=== PATIENT | female | born 1990 | race Caucasian/White ===

== ENCOUNTER 2017-10-16 08:04 | Emergency (ER) | payer MEDICAID ==
[2017-10-16 08:04] VITALS: BMI 23.8
[2017-10-16 08:14] VITALS: RESP 18
[2017-10-16] MEDS ORDERED: Iohexol 240 (50 ml) PO STA (08:51)
[2017-10-16] MEDS ORDERED: Sodium Chloride 0.9% 1,000 ML IV STA (08:51)
[2017-10-16] MEDS ORDERED: Iohexol 240 (50 ml) ONE (08:58)
[2017-10-16] MEDS ORDERED: Sodium Chloride 0.9% 1,000 ML ONE (08:59)
[2017-10-16 09:11] LABS: BASO % 0.4 % (0.0-2.0); EOS # 0.1 K/uL (0.0-0.7); LYMPH # 1.9 K/uL (1.0-4.3); LYMPH % 28.5 % (20.0-40.0); MEAN CORPUSCULAR HEMOGLOBIN 28.1 pg (27.0-31.0); MEAN CORPUSCULAR HGB CONC 33.8 g/dL (33.0-37.0); MEAN PLATELET VOLUME 8.1 fL (7.2-11.7); MONO # 0.4 K/uL (0.0-0.8); MONO % 5.6 % (0.0-10.0); NEUT # 4.2 K/uL (1.8-7.0); NEUT % 64.5 % (50.0-75.0); RBC 4.26 Mil/uL (3.80-5.20); RED CELL DISTRIBUTION WIDTH 14.5 % (11.5-14.5); WHITE BLOOD COUNT 6.5 K/uL (4.8-10.8)
[2017-10-16 09:23] LABS: ALB/GLOB RATIO 1.4 (1.0-2.1); ALT/SGPT 23 U/L (9-52); AST/SGOT 19 U/L (14-36); BLOOD UREA NITROGEN 13 mg/dL (7-17); CALCIUM 8.8 mg/dl (8.6-10.4); GFR AFRICAN-AMERICAN > 60; GFR NON-AFRICAN AMERICAN > 60; LIPASE 201 U/L (23-300); SQUAMOUS EPITHIAL 10 /hpf (0-5); URINE BACTERIA RARE (<OCC); URINE BILIRUBIN NEGATIVE (NEGATIVE); URINE BLOOD 1+ (NEGATIVE); URINE CLARITY Hazy (Clear); URINE COLOR Yellow (YELLOW); URINE GLUCOSE (UA) NORMAL (Normal); URINE LEUKOCYTE ESTERASE 1+ Leu/uL (Negative); URINE PROTEIN NEGATIVE (NEGATIVE); URINE UROBILINOGEN NORMAL mg/dL (0.2-1.0)
[2017-10-16 10:11] LABS: PROTHROMBIN TIME 11.2 SECONDS (9.7-12.2)
[2017-10-16] MEDS ORDERED: Morphine 4 MG/ML VIAL ONE (10:54)
[2017-10-16] MEDS ORDERED: Iodixanol 320 MG/ML 100 ML BOTTLE IV ONE (11:05)
--- NOTE | 2017-10-16 12:44 | CT ---
Date of service: 10/16/2017 PROCEDURE: CT Abdomen and Pelvis with contrast HISTORY: Left abdominal pain, vomiting COMPARISON: 12/15/2014. TECHNIQUE: CT scan of the abdomen and pelvis was performed after administration of intravenous contrast. Oral contrast was administered. Coronal and sagittal reformatted images were obtained. Contrast dose: Radiation dose: Total exam DLP = 627.73 mGy-cm. This CT exam was performed using one or more of the following dose reduction techniques: Automated exposure control, adjustment of the mA and/or kV according to patient size, and/or use of iterative reconstruction technique. FINDINGS: LOWER THORAX: The visualized lungs are clear. LIVER: Normal in size with homogeneous enhancement. No gross lesion or ductal dilatation. GALLBLADDER AND BILE DUCTS: No calcified gallstones. PANCREAS: Normal in size with homogeneous enhancement. No gross lesion or ductal dilatation. SPLEEN: Normal in size and appearance. ADRENALS: No discrete nodule. KIDNEYS AND URETERS: Normal in size with homogeneous enhancement. No hydronephrosis. No solid mass. VASCULATURE: No aortic aneurysm. BOWEL: The small bowel loops are normal in caliber. There is mild sigmoid diverticulosis. There is apparent mild circumferential mural thickening in the sigmoid and ascending colon. No bowel obstruction. APPENDIX: Normal appendix. PERITONEUM: No free fluid. No free air. LYMPH NODES: No enlarged lymph nodes. BLADDER: Grossly normal in appearance. REPRODUCTIVE: The uterus is normal in size. BONES: No acute fracture. OTHER FINDINGS: None. IMPRESSION: Apparent mild circumferential mural thickening in the descending and sigmoid colon is nonspecific and could be related to underdistention however early nonspecific acute infectious/inflammatory colitis cannot be excluded. Clinical follow-up is advised. Mild sigmoid diverticulosis.
--- NOTE | 2017-10-16 13:13 | C.PDOC ---
History Of Present Illness 27yo female, otherwise well, comes to ER with complaints of abdominal pain with associated nausea since last night. Patient sates the pain is diffuse but greater in her left side. She also reports feeling "constipated" but states she was able to make a bowel movement later last night. She denies any vomiting, or UTI symptoms. She has no other complaints. Time Seen by Provider: 10/16/17 08:14 Chief Complaint (Nursing): Abdominal Pain History Per: Patient History/Exam Limitations: no limitations Onset/Duration Of Symptoms: Days Current Symptoms Are (Timing): Still Present Location Of Pain/Discomfort: Diffuse, LUQ, LLQ Quality Of Discomfort: "Pain" Associated Symptoms: Nausea. denies: Fever, Chills, Vomiting, Diarrhea, Back Pain, Chest Pain, Constipation Additional History Per: Patient Abnormal Vaginal Bleeding: No Past Medical History Reviewed: Historical Data, Nursing Documentation, Vital Signs Vital Signs: Last Vital Signs Temp 98.5 F 10/16/17 10:48 Pulse 61 10/16/17 10:48 Resp 18 10/16/17 10:48 BP 108/74 10/16/17 10:48 Pulse Ox 99 10/16/17 13:24 - Medical History PMH: Anemia, Anxiety, Asthma, Hypothyroidism, Sexually Transmitted Disease ( gonorrheal infection) Surgical History: No Surg Hx Family History: States: No Known Family Hx - Social History Hx Tobacco Use: Yes Hx Alcohol Use: No Hx Substance Use: No - Immunization History Hx Tetanus Toxoid Vaccination: No Hx Influenza Vaccination: No Hx Pneumococcal Vaccination: No Review Of Systems Except As Marked, All Systems Reviewed And Found Negative. Constitutional: Negative for: Fever, Chills Cardiovascular: Negative for: Chest Pain Respiratory: Negative for: Shortness of Breath Gastrointestinal: Positive for: Nausea, Abdominal Pain. Negative for: Vomiting Genitourinary: Negative for: Dysuria, Frequency, Hematuria, Vaginal Discharge, Vaginal Bleeding Musculoskeletal: Negative for: Back Pain Physical Exam - Physical Exam Appears: Non-toxic, No Acute Distress Skin: Normal Color, Warm, Dry Head: Atraumatic Eye(s): bilateral: Normal Inspection, EOMI Neck: Normal ROM, Supple Chest: Symmetrical Cardiovascular: Rhythm Regular Respiratory: Normal Breath Sounds Gastrointestinal/Abdominal: Soft, Tenderness (left sided), No Guarding, No Rebound Back: Normal Inspection, No CVA Tenderness, No Vertebral Tenderness Extremity: Normal ROM, No Tenderness, No Pedal Edema, No Deformity Neurological/Psych: Oriented x3, Normal Speech, Normal Cognition, Normal Motor, Normal Sensation ED Course And Treatment - Laboratory Results Result Diagrams: 10/16/17 09:06 10/16/17 09:06 O2 Sat by Pulse Oximetry: 99 (RA) Pulse Ox Interpretation: Normal - CT Scan/US CT Abdomen/Pelvis Other Rad Studies (CT/US): Read By Radiologist, Radiology Report Reviewed CT/US Interpretation: FINDINGS: LOWER THORAX: The visualized lungs are clear. LIVER: Normal in size with homogeneous enhancement. No gross lesion or ductal dilatation. GALLBLADDER AND BILE DUCTS: No calcified gallstones. PANCREAS: Normal in size with homogeneous enhancement. No gross lesion or ductal dilatation. SPLEEN: Normal in size and appearance. ADRENALS: No discrete nodule. KIDNEYS AND URETERS: Normal in size with homogeneous enhancement. No hydronephrosis. No solid mass. VASCULATURE: No aortic aneurysm. BOWEL: The small bowel loops are normal in caliber. There is mild sigmoid diverticulosis. There is apparent mild circumferential mural thickening in the sigmoid and ascending colon. No bowel obstruction. APPENDIX: Normal appendix. PERITONEUM: No free fluid. No free air. LYMPH NODES: No enlarged lymph nodes. BLADDER: Grossly normal in appearance. REPRODUCTIVE: The uterus is normal in size. BONES: No acute fracture. OTHER FINDINGS: None. IMPRESSION: Apparent mild circumferential mural thickening in the descending and sigmoid colon is nonspecific and could be related to underdistention however early nonspecific acute infectious/inflammatory colitis cannot be excluded. Clinical follow-up is advised. Mild sigmoid diverticulosis. Progress Note: Patient given IV toradol and IV fluids. Labs and UA ordered. CT abdomen/pelvis w/ contrast ordered. CT report reviewed, patient with mild sigmoid diverticulitis. Patient given Bentyl, Cipro and Flagyl. Disposition - Disposition Disposition: HOME/ ROUTINE Disposition Time: 13:25 Condition: STABLE Additional Instructions: Follow up with your PMD within 1-2 days. Return to ED if feel worse. Prescriptions: Dicyclomine [Bentyl] 20 mg PO TID #30 tab Ciprofloxacin [Cipro] 1 tab PO BID #14 tab Metronidazole [Flagyl] 500 mg PO TID #30 tablet Ondansetron [Zofran Odt] 1 - 2 tab PO .Q4-6H PRN #20 odt PRN Reason: Nausea/Vomiting Instructions: Acute Abdomen (Belly Pain), Adult (DC) Forms: [employer] (German) - Clinical Impression Clinical Impression: Abdominal pain - PA / POKER ROOM MANAGER / Resident Statement MD/DO has reviewed & agrees with the documentation as recorded. - Scribe Statement The provider has reviewed the documentation as recorded by the Poweribe Itzel Linares Provider Attestation: All medical record entries made by the Poweribc[employer]orro were at my direction and personally dictated by me. I have reviewed the chart and agree that the record accurately reflects my personal performance of the history, physical exam, medical decision making, and the department course for this patient. I have also personally directed, reviewed, and agree with the discharge instructions and disposition.
[2017-10-16 13:46] VITALS: BP 124/76; PULSE 64; TEMP 98.2
[2017-10-16 18:11] VITALS: O2SAT 99
== END 2017-10-16 13:45 | disposition home or self-care (01) ==
LOC: C.ER 08:04
DX: R10.12 Left upper quadrant pain (principal); R10.32 Left lower quadrant pain
CPT/HCPCS: 74177; 80053; 81001; 83690; 85025; 85610; 85730; 96361; 96374; 96375; 99285; C9113; J1885; J2270; J2405; J7030; Q9966; Q9967

== ENCOUNTER 2018-06-23 12:45 | Emergency (ER) | payer OTHER, MEDICAID ==
[2018-06-23 12:45] VITALS: BMI 23.8
[2018-06-23 12:54] VITALS: BP 96/65; PULSE 82; RESP 18; TEMP 97.8; O2SAT 95
[2018-06-23] MEDS ORDERED: Oxycodone/Acetaminophen 5/325 mg Tab PO STA (14:17)
[2018-06-23] MEDS ORDERED: Oxycodone/Acetaminophen 5/325 mg Tab ONE (14:23)
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
== END 2018-06-23 16:08 | disposition home or self-care (01) ==
LOC: C.ER 12:45
DX: S16.1XXA Strain of muscle, fascia and tendon at neck level, initial encounter (principal); S43.402A Unspecified sprain of left shoulder joint, initial encounter; S73.102A Unspecified sprain of left hip, initial encounter; V49.50XA Passenger injured in collision with unspecified motor vehicles in traffic accident, initial encounter; Y92.410 Unspecified street and highway as the place of occurrence of the external cause